=== PATIENT | female | born 1960 | race Caucasian/White ===

== ENCOUNTER → 2018-11-12 | Outpatient (CLI) | payer BC, OTHER | LOC: LABMALL 09:18 → CAT 09:18 | DX: I87.1 Compression of vein (principal) ==

== ENCOUNTER → 2018-11-15 | Outpatient (CLI) | payer BC, OTHER | LOC: ULTRA 12:43 | DX: I82.220 Acute embolism and thrombosis of inferior vena cava (principal) ==

== ENCOUNTER → 2021-02-08 | Outpatient (CLI) | payer BC, OTHER | LOC: ULTRA 10:04 | PROVIDERS: ATTEND Family Medicine | DX: R22.31 Localized swelling, mass and lump, right upper limb (principal) ==